=== PATIENT | female | born 1955 | race Caucasian/White ===

== ENCOUNTER 2022-02-17 11:49 | Inpatient (IN) | payer MEDICARE, OTHER ==
[~2022-02-17] VITALS: Ht 160 cm; Wt 61.2 kg
[2022-02-17] MEDS ORDERED: ASPI81TA31 PO (12:19)
[2022-02-17] MEDS ORDERED: CALC-1210 PO (12:19)
[2022-02-17 12:21] LABS: HEMATOCRIT 36.8 % (31.2-41.9); MEAN CORPUSCULAR HEMOGLOBIN 28.8 uug (24.7-32.8); MEAN CORPUSCULAR VOLUME 85.6 fL (75.5-95.3); PLATELET COUNT (AUTO) 230 K/uL (179-408)
--- NOTE | 2022-02-17 12:30 | NUR ---
Pt arrived with c/o nonradiating chest pain, pressure on the chest and diaphoresis. Pt has a hx of CAD. Denies headache, dizziness, n/v. Pt complained of generalized body weakness and fatigue. Seen by JAZMYNE for MSE.
[2022-02-17 12:42] LABS: ALANINE AMINOTRANSFERASE 26 U/L (14-59); ALKALINE PHOSPHATASE 70 U/L (50-136); ASPARTATE AMINOTRANSFERASE 20 U/L (15-37); BILIRUBIN,DIRECT 0.1 mg/dL (0.0-0.2); BILIRUBIN,TOTAL 0.5 mg/dL (0.2-1.0); CARBON DIOXIDE 26 mmol/L (21-32); CHLORIDE 99 mmol/L (98-107); CREATININE 0.8 mg/dL (0.6-1.3); GLUCOSE 118 mg/dL (74-106); POTASSIUM 3.9 mmol/L (3.5-5.1); TOTAL PROTEIN, SERUM 7.9 g/dL (6.4-8.2); UREA NITROGEN, BLOOD 13 mg/dL (7-18)
--- NOTE | 2022-02-17 14:00 | NUR ---
Pt will be admitted to [facility] under the care of Dr. Geiger d/t chest pain.
[2022-02-17] MEDS ORDERED: ASPIRIN 81 MG TAB.CHEW PO ONE (14:30)
[2022-02-17] MEDS ORDERED: ASPIRIN 81 MG TAB.CHEW ONE (14:32)
--- NOTE | 2022-02-17 14:53 | NUR ---
Called TELE to give report to nurse Silvina, nurse was unavailable. Will be expecting a call back in 10mins per tele nurse.
--- NOTE | 2022-02-17 15:05 | NUR ---
Received this admission from ER per wheelchair, 66 yo female with the diagnosis of chest pain. Transferred to bed comfortably. Routine admission care rendered. Placed on tele, SR. Awake, alert oriented x 4, Portuguese speaking, able to move all extremities on purpose, ambulatory.
[2022-02-17 15:10] VITALS: BP 113/59
[2022-02-17] MEDS ORDERED: ONDANSETRON 4 MG/2 ML VIAL IV PRN (16:00)
[2022-02-17] MEDS ORDERED: ACETAMINOPHEN 325 MG TABLET PO PRN (16:00)
[2022-02-17] MEDS ORDERED: MAGNESIUM HYDROXIDE 30 ML LIQUID UDC PO PRN (16:00)
[2022-02-17] MEDS ORDERED: TEMAZEPAM 15 MG CAPSULE PO PRN (16:00)
[2022-02-17] MEDS ORDERED: HYDROCODONE/APAP 10-325 MG TABLET PO PRN (16:00)
[2022-02-17] MEDS: CEFTRIAXONE 1 G in IV DEXTROSE 5% 50 ML IV SCH (17:25)
[2022-02-17] MEDS: IV 1/2NS 1000 ML 1,000 ML IV PRN (17:26)
--- NOTE | 2022-02-17 17:30 | NUR ---
IVF and antibiotic given as ordered. Dinner served.
[2022-02-17] MEDS: NICOTINE 21 MG/24HR PATCH TD SCH (17:32)
[2022-02-17 18:21] VITALS: BP 120/54
--- NOTE | 2022-02-17 19:30 | NUR ---
Received patient lying in bed. Asleep, easily arouse to verbal stimuli. AOX4. In no acute distress. Denies any pain or SOB. O2 sat at 94% on RA. Denies any CP at this time. NSR on tele with HR of 79/min. IV site on right FA intact and patent. IVF infusing. Needs assessed and attended to. Safety measure initiated and call light within reached.
[2022-02-17 21:32] VITALS: BP 121/62
[2022-02-18 06:00] VITALS: BP 116/61
--- NOTE | 2022-02-18 06:49 | NUR ---
Patient slept well during the night. No complain of chest pain. IVF infusing and tolerated. NSR on tele with HR of 80/min. Needs attended to and met. Safety measure maintained and call light within reached.
[2022-02-18] MEDS: PANTOPRAZOLE SODIUM 40 MG TABLET.DR PO SCH (08:10)
[2022-02-18] MEDS: NICOTINE 21 MG/24HR PATCH TD SCH (08:11)
[2022-02-18] MEDS: ASPIRIN 81 MG TAB.CHEW PO SCH (08:11)
[2022-02-18 08:18] LABS: HEMATOCRIT 36.1 % (31.2-41.9); MEAN CORPUSCULAR VOLUME 85.7 fL (75.5-95.3); PLATELET COUNT (AUTO) 219 K/uL (179-408)
[2022-02-18 08:34] LABS: BILIRUBIN,TOTAL 0.4 mg/dL (0.2-1.0); CREATININE 0.6 mg/dL (0.6-1.3); PHOSPHOROUS 3.4 mg/dL (2.5-4.9); POTASSIUM 4.2 mmol/L (3.5-5.1); TOTAL PROTEIN, SERUM 7.6 g/dL (6.4-8.2); URIC ACID 3.4 mg/dL (2.6-6.0)
[2022-02-18 09:02] LABS: *RHEUMATOID FACTOR SCREEN NEGATIVE (NEGATIVE)
[2022-02-18] MEDS: IV 1/2NS 1000 ML 1,000 ML IV PRN (09:36)
[2022-02-18 09:42] LABS: *BILIRUBIN,URIN NEGATIVE (NEGATIVE); *CLARITY,URINE CLEAR (CLEAR); *COLOR,URINE YELLOW (YELLOW); *KETONES,URINE NEGATIVE (NEGATIVE); *UROBILINOGEN,URINE 0.2 E.U./dl (NORMAL); LEUKOCYTE ESTERASE ,URINE 3+ (NEGATIVE); NITRITE, URINE NEGATIVE (NEGATIVE); PH,URINE 6.5 (5.0-8.0); UGLUCOSE NEGATIVE (NEGATIVE)
[2022-02-18 10:13] LABS: *BLOOD, URINE TRACE (NEGATIVE)
[2022-02-18 11:44] VITALS: BP 113/64
[2022-02-18 15:43] LABS: BACTERIA,URINE MANY /HPF (NONE SEEN); SQUAMOUS EPITHELIAL CELL,UR MANY /HPF (NONE SEEN); WBC,URINE 20-50 /HPF (0-3)
[2022-02-18 15:50] VITALS: BP 109/62
[2022-02-18] MEDS: CEFTRIAXONE 1 G in IV DEXTROSE 5% 50 ML IV SCH (17:41)
--- NOTE | 2022-02-18 19:30 | NUR ---
Received patient lying in bed. AOX4. In no acute distress. Denies any pain or SOB. O2 sat at 97% on RA. NSR on tele with HR of 71/min. IV site on right FA and right AC intact and patent. IVF infusing on right FA IV site. Needs assessed and attended to. Safety measure initiated and call light within reached. Plan for patient to transfer to [facility].
[2022-02-18 19:52] VITALS: BP 116/59
--- NOTE | 2022-02-18 20:30 | NUR ---
Spoke to [facility] SAMUEL Hester and requesting to fax clinicals to [phone] and will fax at this time. Kacie to call back after reviewing patient records for bed and room number.
--- NOTE | 2022-02-18 21:00 | NUR ---
Telephone call from [facility] [place] beds availlable at this time. Will follow up in AM. Informed patient as well as patient daughter Shazia and states understanding.
--- NOTE | 2022-02-18 21:03 | NUR ---
Telephone call to [facility] spoke to Oriana and informed her that ptwill no longer be transferred tonight at [facility] and requested to place on on [facility] and Oriana states understanding.
[2022-02-19] VITALS: BP 107/53
[2022-02-19] MEDS: IV 1/2NS 1000 ML 1,000 ML IV PRN (00:48)
--- NOTE | 2022-02-19 04:57 | NUR ---
Slept through out the night. Denies any CP or SOB. Remains NSR on tele with HR of 67/min. IV site on right FA and right AC remains intact and patent. IVF infusing. Needs attended to and met. Safety measure maintained and call light within reached.
[2022-02-19] MEDS: PANTOPRAZOLE SODIUM 40 MG TABLET.DR PO SCH (06:16)
[2022-02-19 06:39] VITALS: BP 115/63
[2022-02-19] MEDS ORDERED: ATORVASTATIN 40 MG TABLET PO SCH ×2 (07:28→21:00)
[2022-02-19 08:09] LABS: HEMATOCRIT 37.2 % (31.2-41.9); MEAN CORPUSCULAR HEMOGLOBIN 28.8 uug (24.7-32.8); MEAN CORPUSCULAR VOLUME 86.4 fL (75.5-95.3); PLATELET COUNT (AUTO) 214 K/uL (179-408)
[2022-02-19 08:14] LABS: CREATININE 0.6 mg/dL (0.6-1.3); POTASSIUM 3.8 mmol/L (3.5-5.1)
[2022-02-19] MEDS: NICOTINE 21 MG/24HR PATCH TD SCH (08:45)
[2022-02-19] MEDS: ASPIRIN 81 MG TAB.CHEW PO SCH (08:46)
[2022-02-19 10:06] LABS: A/G RATIO 0.8 (0.7-1.7); ALBUMIN 2.9 g/dL (2.9-4.4); ALPHA-1-GLOBULIN 0.2 g/dL (0.0-0.4); GAMMA GLOBULIN 1.4 g/dL (0.4-1.8); GLOBULIN, TOTAL 3.6 g/dL (2.2-3.9); M-SPIKE Not Observed g/dL (Not Observed)
[2022-02-19 11:06] VITALS: BP 100/57
[2022-02-19] MEDS ORDERED: CLOPIDOGREL 75 MG TABLET PO ONE (11:30)
--- NOTE | 2022-02-19 12:00 | NUR ---
IV was hurting patient's hand, so it was removed by Shazia. No other issues or concerns at this time.
--- NOTE | 2022-02-19 14:00 | NUR ---
No complain of chest pain. IVF stopped per patient's request and Dr Geiger was agree to DC it. Needs attended to and met. Safety measure maintained and call light within reached.
[2022-02-19 15:14] VITALS: BP 131/62
[2022-02-19] MEDS: CEFTRIAXONE 1 G in IV DEXTROSE 5% 50 ML IV SCH (16:03)
--- NOTE | 2022-02-19 17:10 | NUR ---
Patient got discharged, stable at the time of discharge, no complains of pain, no distress. Was taken home by her daughter Shazia
[2022-02-19] MEDS ORDERED: ONDA4TAB5 PO (17:13)
[2022-02-19] MEDS ORDERED: CLOP75TA15 PO (17:13)
[2022-02-19] MEDS ORDERED: ATOR40TA PO (17:13)
[2022-02-19] MEDS ORDERED: CEPH500C2 PO (17:13)
[2022-02-19] MEDS ORDERED: ESOM20CA PO (17:13)
[2022-02-19] MEDS ORDERED: NICO-780 TD (17:13)
[2022-02-20 08:06] LABS: *PEU ALBUMIN, UR Note: % (.)
[2022-02-20] MEDS ORDERED: CEphaleXIN 500 MG CAPSULE PO SCH (09:00)
== END 2022-02-19 17:10 | disposition home or self-care (01) | DRG 303 ==
LOC: ER 11:49 → TELE3 15:04
PROVIDERS: ADMIT Internal Medicine; ATTEND Internal Medicine
DX: I25.110 Atherosclerotic heart disease of native coronary artery with unstable angina pectoris (principal); N39.0 Urinary tract infection, site not specified; R55 Syncope and collapse; E78.5 Hyperlipidemia, unspecified; I25.2 Old myocardial infarction; Z79.82 Long term (current) use of aspirin; M06.9 Rheumatoid arthritis, unspecified; G89.29 Other chronic pain; F17.210 Nicotine dependence, cigarettes, uncomplicated; E61.1 Iron deficiency; R53.1 Weakness; R91.8 Other nonspecific abnormal finding of lung field; Z98.890 Other specified postprocedural states; Z20.822 Contact with and (suspected) exposure to COVID-19
CPT/HCPCS: 36415; 70450; 71045; 71250; 73502; 82378; 82533; 83550; 83735; 84100; 84155; 84165; 84166; 84443; 84484; 84550; 85025; 86140; 86430; 87086; 87400; 93307; 93880; A4663; G0378; J0696

== ENCOUNTER 2023-05-14 12:57 | Outpatient (CLI) | payer MEDICARE, OTHER ==
[~2023-05-14 12:57] MED LIST: ATOR40TA PO; CALC-1210 PO; CEPH500C2 PO; CLOP75TA15 PO; ESOM20CA PO; NICO-780 TD; ONDA4TAB5 PO
[2023-05-14 14:03] LABS: BASOPHILS % (AUTO) 0.4 % (0.0-2.0); EOSINOPHILS # (AUTO) 0.1 K/uL (0.0-0.7); EOSINOPHILS % (AUTO) 1.2 % (0.0-7.0); HEMATOCRIT 36.1 % (31.2-41.9); HEMOGLOBIN 12.2 g/dL (10.9-14.3); LYMPHOCYTES # (AUTO) 2.1 K/uL (0.8-4.8); LYMPHOCYTES % (AUTO) 25.9 % (20.5-51.5); MEAN CORPUSCULAR HEMOGLOBIN 29.1 uug (24.7-32.8); MEAN CORPUSCULAR HGB CONC 34 g/dL (32.3-35.6); MEAN CORPUSCULAR VOLUME 86.4 fL (75.5-95.3); MONOCYTES # (AUTO) 0.6 K/uL (0.1-1.30); MONOCYTES % (AUTO) 7.5 % (0.0-11.0); NEUTROPHILS # (AUTO) 5.3 K/uL (1.8-8.9); PLATELET COUNT (AUTO) 296 K/uL (179-408); RED BLOOD CELL COUNT(AUTO) 4.18 MIL/uL (3.63-4.92); RED CELL DISTRIBUTION WIDTH 13.3 % (12.3-17.7); WHITE BLOOD COUNT (AUTO) 8.1 K/uL (3.8-11.8)
[2023-05-14 14:12] LABS: *BILIRUBIN,URIN NEGATIVE (NEGATIVE); *BLOOD, URINE NEGATIVE (NEGATIVE); *CLARITY,URINE CLEAR (CLEAR); *COLOR,URINE YELLOW (YELLOW); *KETONES,URINE NEGATIVE (NEGATIVE); *PROTEIN,URINE TRACE (NEGATIVE); *UROBILINOGEN,URINE 0.2 E.U./dl (NORMAL); LEUKOCYTE ESTERASE ,URINE NEGATIVE (NEGATIVE); NITRITE, URINE NEGATIVE (NEGATIVE); PH,URINE 5.5 (5.0-8.0); UGLUCOSE NEGATIVE (NEGATIVE)
[2023-05-14 14:18] LABS: ALBUMIN 3.5 g/dL (3.4-5.0); BILIRUBIN,TOTAL 0.7 mg/dL (0.2-1.0); CALCIUM 9.4 mg/dL (8.5-10.1); CREATININE 0.6 mg/dL (0.6-1.3); MAGNESIUM 1.8 mg/dL (1.8-2.4); POTASSIUM 3.5 mmol/L (3.5-5.1); TOTAL PROTEIN, SERUM 8.2 g/dL (6.4-8.2); URIC ACID 3.7 mg/dL (2.6-6.0)
[2023-05-14 14:21] LABS: DIFFERENTIAL COMMENT 1
[2023-05-14 14:36] LABS: THYROID STIMULATING HORMONE 2.466 mIU/mL (0.358-3.740)
[2023-05-14 15:03] LABS: BACTERIA,URINE FEW /HPF (NONE SEEN); MUCUS,URINE FEW /LPF (0-FEW); RBC,URINE 0-3 /HPF (0-3); WBC,URINE 0-3 /HPF (0-3)
== END 2023-05-14 23:59 | disposition home or self-care (01) ==
LOC: LAB 12:57
PROVIDERS: ATTEND Family Medicine
DX: Z01.812 Encounter for preprocedural laboratory examination (principal); M25.511 Pain in right shoulder; R55 Syncope and collapse; I10 Essential (primary) hypertension; I70.0 Atherosclerosis of aorta
CPT/HCPCS: 36415; 71046; 73000; 73030; 83735; 84443; 84550; 85025; 85730; 93005

== ENCOUNTER 2023-07-19 10:10 | Inpatient (IN) | payer MEDICARE, OTHER ==
[~2023-07-19] VITALS: Ht 160 cm; Wt 66.7 kg
[2023-07-19] MEDS ORDERED: REMEDY ESSENTIAL ZINC PASTE 113 GM TOP PRN (12:45)
[2023-07-19] MEDS ORDERED: ATOR80TA PO (13:03)
[2023-07-19] MEDS ORDERED: ASPI-1420 PO (13:35)
[2023-07-19 14:24] VITALS: BP 119/67; TEMP 98.2; O2SAT 98
[2023-07-19] MEDS ORDERED: MIRALAX 17 GM POWD.PACK PO PRN (16:45)
[2023-07-19 20:00] VITALS: BP 109/55; TEMP 97.8; O2SAT 95
[2023-07-19] MEDS: ATORVASTATIN 40 MG TABLET PO SCH (20:17)
[2023-07-20] MEDS: ASPIRIN EC 81 MG TABLET.DR PO SCH (08:29)
[2023-07-20 08:36] VITALS: BP 119/59; O2SAT 98
[2023-07-20 09:14] LABS: BASOPHILS % (AUTO) 0.7 % (0.0-2.0); EOSINOPHILS # (AUTO) 0.1 K/uL (0.0-0.7); EOSINOPHILS % (AUTO) 1.7 % (0.0-7.0); HEMATOCRIT 38.2 % (31.2-41.9); HEMOGLOBIN 12.7 g/dL (10.9-14.3); LYMPHOCYTES % (AUTO) 27.1 % (20.5-51.5); MEAN CORPUSCULAR HEMOGLOBIN 27.9 uug (24.7-32.8); MEAN CORPUSCULAR HGB CONC 33 g/dL (32.3-35.6); MEAN CORPUSCULAR VOLUME 84.1 fL (75.5-95.3); MONOCYTES # (AUTO) 0.7 K/uL (0.1-1.30); MONOCYTES % (AUTO) 9.5 % (0.0-11.0); NEUTROPHILS # (AUTO) 4.5 K/uL (1.8-8.9); PLATELET COUNT (AUTO) 259 K/uL (179-408); RED BLOOD CELL COUNT(AUTO) 4.54 MIL/uL (3.63-4.92); RED CELL DISTRIBUTION WIDTH 13.1 % (12.3-17.7); WHITE BLOOD COUNT (AUTO) 7.4 K/uL (3.8-11.8)
[2023-07-20 09:38] LABS: CALCIUM 9.4 mg/dL (8.5-10.1); CREATININE 0.7 mg/dL (0.6-1.3); DIFFERENTIAL COMMENT 1
[2023-07-20 09:45] LABS: ALBUMIN 3.4 g/dL (3.4-5.0); BILIRUBIN,TOTAL 0.7 mg/dL (0.2-1.0); PHOSPHOROUS 3.8 mg/dL (2.5-4.9); TOTAL PROTEIN, SERUM 8.2 g/dL (6.4-8.2)
[2023-07-20 09:48] LABS: THYROID STIMULATING HORMONE 3.372 mIU/mL (0.358-3.740)
[2023-07-20 15:38] VITALS: BP 101/72; TEMP 97.6; O2SAT 97
[2023-07-20] MEDS ORDERED: IV NORMAL SALINE 250 ML IV ONE (17:51)
[2023-07-20] MEDS ORDERED: SWABABLE VALVE TRANSFER SET EA MC ONE (17:51)
[2023-07-20] MEDS ORDERED: IOHEXOL 300MG/ML 100 ML INFUS..BTL ONE (17:51)
[2023-07-20 20:24] VITALS: BP 117/61; TEMP 98.1; O2SAT 96
[2023-07-21] MEDS: ACETAMINOPHEN 325 MG TABLET PO PRN (08:31)
[2023-07-21 11:24] VITALS: BP 113/55; TEMP 97.5; O2SAT 94
[2023-07-21] MEDS: LIDOCAINE HCL 1% 20 ML VIAL IJ ONE (13:30)
[2023-07-21] MEDS: TRIAMCINOLONE ACETONIDE 40 MG/1 ML VIAL IJ ONE (13:31)
[2023-07-21 15:56] VITALS: BP 136/69; TEMP 97.9; O2SAT 98
[2023-07-21 20:00] VITALS: BP 129/68; TEMP 97.7; O2SAT 95
[2023-07-22 07:50] LABS: ALBUMIN 3.5 g/dL (3.4-5.0); BILIRUBIN,DIRECT 0.1 mg/dL (0.0-0.2); BILIRUBIN,TOTAL 0.4 mg/dL (0.2-1.0); CALCIUM 9.5 mg/dL (8.5-10.1); CREATININE 0.6 mg/dL (0.6-1.3); POTASSIUM 4.6 mmol/L (3.5-5.1); TOTAL PROTEIN, SERUM 8.7 g/dL (6.4-8.2)
[2023-07-22 07:58] LABS: BASOPHILS % (AUTO) 0.2 % (0.0-2.0); EOSINOPHILS % (AUTO) 0.1 % (0.0-7.0); HEMATOCRIT 38.3 % (31.2-41.9); HEMOGLOBIN 12.9 g/dL (10.9-14.3); LYMPHOCYTES # (AUTO) 1.4 K/uL (0.8-4.8); LYMPHOCYTES % (AUTO) 10.1 % (20.5-51.5); MEAN CORPUSCULAR HEMOGLOBIN 28.1 uug (24.7-32.8); MEAN CORPUSCULAR HGB CONC 34 g/dL (32.3-35.6); MEAN CORPUSCULAR VOLUME 83.4 fL (75.5-95.3); MONOCYTES # (AUTO) 0.6 K/uL (0.1-1.30); MONOCYTES % (AUTO) 4.6 % (0.0-11.0); NEUTROPHILS # (AUTO) 11.6 K/uL (1.8-8.9); PLATELET COUNT (AUTO) 284 K/uL (179-408); RED BLOOD CELL COUNT(AUTO) 4.59 MIL/uL (3.63-4.92); RED CELL DISTRIBUTION WIDTH 13.1 % (12.3-17.7); WHITE BLOOD COUNT (AUTO) 13.7 K/uL (3.8-11.8)
[2023-07-22 10:05] VITALS: BP 129/67
[2023-07-22 11:55] VITALS: BP 117/62; TEMP 97.9; O2SAT 94
[2023-07-22] MEDS: diphenhydrAMINE 25 MG CAP PO PRN (13:31)
[2023-07-22 16:00] VITALS: BP 127/56; TEMP 98.6; O2SAT 95
[2023-07-22 20:00] VITALS: BP 132/64; TEMP 98.3; O2SAT 95
[2023-07-22 21:27] LABS: *BILIRUBIN,URIN NEGATIVE (NEGATIVE); *BLOOD, URINE NEGATIVE (NEGATIVE); *CLARITY,URINE CLEAR (CLEAR); *COLOR,URINE YELLOW (YELLOW); *KETONES,URINE NEGATIVE (NEGATIVE); *PROTEIN,URINE NEGATIVE (NEGATIVE); *UROBILINOGEN,URINE 0.2 E.U./dl (NORMAL); LEUKOCYTE ESTERASE ,URINE TRACE (NEGATIVE); NITRITE, URINE NEGATIVE (NEGATIVE); PH,URINE 6.5 (5.0-8.0); UGLUCOSE NEGATIVE (NEGATIVE)
[2023-07-22 22:08] LABS: BACTERIA,URINE FEW /HPF (NONE SEEN); RBC,URINE 0-3 /HPF (0-3); SQUAMOUS EPITHELIAL CELL,UR MANY /HPF (NONE SEEN)
[2023-07-23 06:00] VITALS: BP 115/54; TEMP 98; O2SAT 97
[2023-07-23 06:44] LABS: BASOPHILS % (AUTO) 0.1 % (0.0-2.0); EOSINOPHILS % (AUTO) 0.1 % (0.0-7.0); HEMATOCRIT 35.2 % (31.2-41.9); HEMOGLOBIN 11.8 g/dL (10.9-14.3); LYMPHOCYTES % (AUTO) 13.6 % (20.5-51.5); MEAN CORPUSCULAR HGB CONC 34 g/dL (32.3-35.6); MEAN CORPUSCULAR VOLUME 83.3 fL (75.5-95.3); MONOCYTES # (AUTO) 1.1 K/uL (0.1-1.30); MONOCYTES % (AUTO) 7.9 % (0.0-11.0); NEUTROPHILS # (AUTO) 11.3 K/uL (1.8-8.9); NEUTROPHILS % (AUTO) 78.3 % (38.5-71.5); PLATELET COUNT (AUTO) 272 K/uL (179-408); RED BLOOD CELL COUNT(AUTO) 4.23 MIL/uL (3.63-4.92); WHITE BLOOD COUNT (AUTO) 14.4 K/uL (3.8-11.8)
[2023-07-23 06:51] LABS: DIFFERENTIAL COMMENT 1
[2023-07-23 06:52] LABS: BILIRUBIN,DIRECT 0.1 mg/dL (0.0-0.2); BILIRUBIN,TOTAL 0.2 mg/dL (0.2-1.0); CREATININE 0.5 mg/dL (0.6-1.3); POTASSIUM 4.1 mmol/L (3.5-5.1); TOTAL PROTEIN, SERUM 7.7 g/dL (6.4-8.2)
[2023-07-23 16:56] VITALS: BP 135/63; TEMP 98.3; O2SAT 97
[2023-07-23 19:45] VITALS: BP 130/64; TEMP 98; O2SAT 95
[2023-07-24 06:27] VITALS: BP 120/68; TEMP 97.9; O2SAT 98
[2023-07-24 08:00] VITALS: BP 110/68; TEMP 97.8
[2023-07-24 10:29] VITALS: BP 125/70; TEMP 97.9; O2SAT 98
[2023-07-24 11:16] VITALS: BP 109/68; TEMP 97.8; O2SAT 96
[2023-07-24 14:26] LABS: BASOPHILS # (AUTO) 0.2 K/UL (0.0-0.2); BASOPHILS % (AUTO) 2.1 % (0.0-2.0); EOSINOPHILS % (AUTO) 0.4 % (0.0-7.0); HEMATOCRIT 37.6 % (31.2-41.9); HEMOGLOBIN 12.3 g/dL (10.9-14.3); LYMPHOCYTES # (AUTO) 1.3 K/uL (0.8-4.8); LYMPHOCYTES % (AUTO) 11.4 % (20.5-51.5); MEAN CORPUSCULAR HEMOGLOBIN 27.5 uug (24.7-32.8); MEAN CORPUSCULAR HGB CONC 33 g/dL (32.3-35.6); MEAN CORPUSCULAR VOLUME 84.2 fL (75.5-95.3); MONOCYTES % (AUTO) 8.4 % (0.0-11.0); NEUTROPHILS # (AUTO) 8.9 K/uL (1.8-8.9); NEUTROPHILS % (AUTO) 77.7 % (38.5-71.5); PLATELET COUNT (AUTO) 284 K/uL (179-408); RED BLOOD CELL COUNT(AUTO) 4.47 MIL/uL (3.63-4.92); RED CELL DISTRIBUTION WIDTH 13.2 % (12.3-17.7); WHITE BLOOD COUNT (AUTO) 11.5 K/uL (3.8-11.8)
[2023-07-24 14:30] LABS: DIFFERENTIAL COMMENT 1
[2023-07-24 14:35] LABS: CALCIUM 9.1 mg/dL (8.5-10.1); CREATININE 0.9 mg/dL (0.6-1.3)
[2023-07-24 15:00] VITALS: BP 118/65; TEMP 97.8; O2SAT 97
[2023-07-25 16:00] VITALS: BP 117/50; TEMP 98; O2SAT 98
[2023-07-25 19:14] LABS: BASOPHILS % (AUTO) 0.1 % (0.0-2.0); DIFFERENTIAL COMMENT 1; EOSINOPHILS % (AUTO) 0.3 % (0.0-7.0); HEMATOCRIT 35.7 % (31.2-41.9); HEMOGLOBIN 11.9 g/dL (10.9-14.3); LYMPHOCYTES # (AUTO) 2.5 K/uL (0.8-4.8); LYMPHOCYTES % (AUTO) 24.8 % (20.5-51.5); MEAN CORPUSCULAR HEMOGLOBIN 27.8 uug (24.7-32.8); MEAN CORPUSCULAR HGB CONC 33 g/dL (32.3-35.6); MEAN CORPUSCULAR VOLUME 83.4 fL (75.5-95.3); MONOCYTES # (AUTO) 1.5 K/uL (0.1-1.30); MONOCYTES % (AUTO) 14.6 % (0.0-11.0); NEUTROPHILS % (AUTO) 60.2 % (38.5-71.5); PLATELET COUNT (AUTO) 276 K/uL (179-408); RED BLOOD CELL COUNT(AUTO) 4.28 MIL/uL (3.63-4.92)
[2023-07-25 19:20] LABS: CALCIUM 8.9 mg/dL (8.5-10.1); CREATININE 0.8 mg/dL (0.6-1.3); POTASSIUM 3.6 mmol/L (3.5-5.1)
[2023-07-25 21:06] VITALS: BP 112/53; TEMP 97.7; O2SAT 98
[2023-07-26 06:16] VITALS: BP 123/53; TEMP 98.6; O2SAT 96
[2023-07-26 07:29] LABS: BASOPHILS % (AUTO) 0.2 % (0.0-2.0); EOSINOPHILS # (AUTO) 0.1 K/uL (0.0-0.7); EOSINOPHILS % (AUTO) 0.6 % (0.0-7.0); HEMATOCRIT 36.9 % (31.2-41.9); HEMOGLOBIN 12.5 g/dL (10.9-14.3); LYMPHOCYTES # (AUTO) 2.7 K/uL (0.8-4.8); LYMPHOCYTES % (AUTO) 28.6 % (20.5-51.5); MEAN CORPUSCULAR HEMOGLOBIN 28.1 uug (24.7-32.8); MEAN CORPUSCULAR HGB CONC 34 g/dL (32.3-35.6); MEAN CORPUSCULAR VOLUME 83.1 fL (75.5-95.3); MONOCYTES # (AUTO) 1.1 K/uL (0.1-1.30); MONOCYTES % (AUTO) 11.8 % (0.0-11.0); NEUTROPHILS # (AUTO) 5.5 K/uL (1.8-8.9); NEUTROPHILS % (AUTO) 58.8 % (38.5-71.5); PLATELET COUNT (AUTO) 299 K/uL (179-408); RED BLOOD CELL COUNT(AUTO) 4.44 MIL/uL (3.63-4.92); WHITE BLOOD COUNT (AUTO) 9.3 K/uL (3.8-11.8)
[2023-07-26 07:50] LABS: DIFFERENTIAL COMMENT 1
[2023-07-26 08:00] VITALS: BP 118/55; TEMP 97.3; O2SAT 98
[2023-07-26 08:21] LABS: CALCIUM 8.8 mg/dL (8.5-10.1); CREATININE 0.6 mg/dL (0.6-1.3); POTASSIUM 4.1 mmol/L (3.5-5.1)
[2023-07-26 15:42] VITALS: BP 123/75; TEMP 98.4; O2SAT 99
[2023-07-26] MEDS ORDERED: ATOR40TA PO (19:00)
[2023-07-27] MEDS ORDERED: ASPIRIN EC 81 MG TABLET.DR PO SCH (09:00)
== END 2023-07-26 16:10 | disposition home health service (06) | DRG 948 ==
PROVIDERS: ADMIT Physical Medicine & Rehabilitation Pain Medicine; ATTEND Physical Medicine & Rehabilitation Pain Medicine
DX: R53.1 Weakness (principal); C34.11 Malignant neoplasm of upper lobe, right bronchus or lung; M75.01 Adhesive capsulitis of right shoulder; E78.5 Hyperlipidemia, unspecified; Z87.891 Personal history of nicotine dependence; I25.10 Atherosclerotic heart disease of native coronary artery without angina pectoris; I87.2 Venous insufficiency (chronic) (peripheral); Z95.5 Presence of coronary angioplasty implant and graft; Z96.642 Presence of left artificial hip joint; J44.9 Chronic obstructive pulmonary disease, unspecified; M19.011 Primary osteoarthritis, right shoulder; Z91.041 Radiographic dye allergy status; M79.18 Myalgia, other site; R74.01 Elevation of levels of liver transaminase levels; R74.8 Abnormal levels of other serum enzymes; R97.0 Elevated carcinoembryonic antigen [CEA]; M54.50 Low back pain, unspecified; M06.9 Rheumatoid arthritis, unspecified
CPT/HCPCS: 36415; 71270; 73200; 82378; 83615; 83735; 84100; 84443; 85025; 85610; 85730; 87040; A4663; J3301; J3490; Q0163; Q9967